=== PATIENT | female | born 1995 | race Caucasian/White ===

== ENCOUNTER 2016-10-03 12:18 | Emergency (ER) ==
[2016-10-03 12:36] VITALS: BP 135/89
[2016-10-03 13:11] LABS: URINE SOURCE CLEAN CATCH
[2016-10-03 13:14] LABS: URINE MICROSCOPIC NEEDED? YES
[2016-10-03 13:15] LABS: BILIRUBIN URINE 2+ (NEGATIVE); CLARITY SLIGHTLY CLOUDY (CLEAR); COLOR ORANGE; GLUCOSE URINE NEGATIVE (NEGATIVE); SP GRAVITY URINE 1.015
[2016-10-03 13:16] LABS: BLOOD URINE 4+ (NEGATIVE); LEUKOCYTES URINE 1+ (NEGATIVE); NITRITE URINE NEGATIVE (NEGATIVE); PROTEIN URINE 2+(100 mg/dL) mg/dL (NEGATIVE); UROBILINOGEN URINE 3+(8 mg/dL)
[2016-10-03 13:22] LABS: URINE CAST GRANULAR PRESENT /LPF; URINE EPITHELIAL CELLS >10 /HPF (<10); URINE RBC TNTC /HPF (<10); URINE WBC 20-40 /HPF (<10)
--- NOTE | 2016-10-03 14:01 | PROVIDER DOCUMENTATION ---
HPI-Abdominal Pain/GI Problem - General Chief Complaint: Constipation Stated Complaint: NAUSEA/VOMTING Time Seen by Provider: 10/03/16 14:34 Source: patient Allergies/Adverse Reactions: Patient Allergies Allergy/AdvReac Type Severity Reaction Status Date / Time Penicillins Allergy Intermediate HIVES Verified 12/17/14 13:11 Home Medications: Home Medication List Medication Instructions Recorded Confirmed Last Taken Type No Home Medications 10/03/16 10/03/16 Unknown History - History of Present Illness-ABD Nature of Presenting Problems: 21 yo F presents to the ER with complaint of n/v and constipation x2 weeks. Also describes mild abdominal cramping. Last full menstrual period was in June, describes bleeing for 1 day in July and 2 days in August. Onset/Duration: reports: other (2 weeks) Timing: reports: still present Associated Symptoms: reports: constipation, nausea, vomiting. denies: diarrhea Review of Systems - Adult - REVIEW OF SYSTEMS - ADULT Constitutional: denies: chills, fever Eyes: reports: no symptoms reported Ears, Nose, Mouth & Throat: reports: no symptoms reported Cardiovascular: reports: no symptoms reported Respiratory: denies: cough, shortness of breath Gastrointestinal: reports: abdominal pain (cramp), constipation, nausea, vomiting. denies: diarrhea Genitourinary: denies: dysuria, hematuria Musculoskeletal: reports: no symptoms reported Integumentary: reports: no symptoms reported Neurological: reports: no symptoms reported Psychiatric: reports: no symptoms reported Endocrine: reports: no symptoms reported Hematologic/Lymphatic: reports: no symptoms reported Allergic/Immunologic: reports: no symptoms reported All Other Systems: Reviewed and Negative Past History - Adult - PAST MEDICAL HISTORY-ADULT Review of Records: reports: Nursing Assessment Review, Medications Reviewed Major Childhood Illnesses: reports: denies history Cardiovascular: reports: denies history Respiratory: reports: denies history Gastrointestinal: reports: denies history Obstetrical/Gynecological: reports: denies history Genitourinary: reports: denies history Musculoskeletal: reports: denies history Neurological: reports: denies history Endocrine/Immune: reports: denies history Other Conditions: reports: denies history - PRIOR SURGERIES/PROCEDURES Surgical/Procedure History: reports: none, other (dental surgery) - IMMUNIZATION STATUS Childhood Immunizations: See Nurse Assessment Flu Vaccine: See Nurse Assessment - FAMILY HISTORY Family History: reviewed, not pertinent Physical Exam-General - PHYSICAL EXAM-ADULT Initial Vital Signs Reviewed: Yes - CONSTITUTIONAL General Appearance: alert, no apparent distress - EYES Eyes: PERRL/EOMI, pink conjunctivae - HEAD, EARS, NOSE, MOUTH & THROAT HENMT: normocephalic/atraumatic, normal ENT inspection - NECK Neck: supple, normal inspection - RESPIRATORY Respiratory: no respiratory distress, no accessory muscle use - CARDIOVASCULAR Cardiovascular: normal peripheral pulses, regular rate, rhythm - GASTROINTESTINAL (ABDOMEN) Abdominal Exam: normal bowel sounds, non tender, soft - MUSCULOSKELETAL Back Exam: no CVA tenderness, no vertebral tenderness Extremity: normal gait, normal inspection - SKIN Integumentary: normal color, warm/dry - NEUROLOGIC Neurologic: grossly normal, no motor/sensory deficits - PSYCHIATRIC Psych/Mental Status: normal mood/affect, normal thought content, normal thought process, oriented x 3 Progress - PLAN OF CARE/RESULTS Progress/Plan/Lab Results: Vital Signs Temp Pulse Resp BP Pulse Ox 10/03/16 12:31 98 F 138 H 19 135/89 98 Penicillins Allergy (Intermediate, Verified 12/17/14 13:11) HIVES No Home Medications 10/03/16 Laboratory 10/03/16 10/03/16 13:52 12:30 Urine Source CLEAN CATCH Urine Color ORANGE Urine Clarity SLIGHTLY CLOUDY A Urine pH 6.0 Ur Specific [place] 1.015 Urine Protein 2+(100 mg/dL) A Urine Ketones 3+(Large) A Urine Blood 4+ Urine Nitrite NEGATIVE Urine Bilirubin 2+ A Urine Urobilinogen 3+(8 mg/dL) Urine Microscopic RBC TNTC A Urine WBC 1+ A Urine Microscopic WBC 20-40 A Ur Epithelial Cells >10 A Urine Bacteria 3+ Urine Casts GRANULAR PRESENT Urine Glucose NEGATIVE Urine Test POSITIVE Orders Category Date Time Status US OBS COMPLETE < 14 WKS [US] Stat Exams 10/03/16 14:46 Taken TEST-URINE [PREG] Stat Lab 10/03/16 13:[address] [URINALYSIS] Stat Lab 10/03/16 12:30 Completed URINE MICROSCOPIC [URINALYSIS] Stat Lab 10/03/16 12:30 Completed - ULTRASOUND (By Radiology) 1 US Study: other (OB) Impression: Normal (viable IUP at 13w4d, per radiologist) Departure - Departure Time of Disposition Order: 16:22 DIAGNOSIS: Qualifiers: Weeks of gestation: 13 weeks Qualified Code(s): Z3A.13 - 13 weeks gestation of Disposition: HOME 01 Certified Medical Emergency: Emergent Condition: Stable Additional Instructions: ED Follow Up Instructions: You have been treated by a care provider in the Emergency Department. These instructions are being provided to you so you can have an understanding of how to care for yourself upon discharge. Upon discharge from the Emergency Department, you are responsible for making arrangements for follow-up care by a physician of your choice. Take all prescribed medications as directed. Return to the Emergency Department immediately for any new or worsening symptoms. You may call the Physician Referral phone number at [phone] to obtain a list of Physicians who are taking new patients. Referrals: None,PCP [Primary Care Provider] - Joel Macias MD [STAFF PHYSICIAN] - Attestation - Scribe Verification/Attestation Scribe:: Izabella Ricks Acting as Scribe for:: Ruiz Lebron Scribe documention review:: This chart was documented by a scribe and accurately reflects the service the provider performed and the decisions made by the provider.
--- NOTE | 2016-10-03 16:51 | Diag Imaging Result Document ---
PROCEDURE NAME: US OBS COMPLETE < 14 WKS - 10/03/2016 OB ULTRASOUND: FINDINGS: There is an intrauterine gestation with a heart rate of 171 beats per minute. The fetus is in breech presentation. The placenta is posterior. There is no evidence of placenta previa. The cervix is closed. There is no evidence of free intrapelvic fluid or adnexal masses. No measurements beyond the crown-rump length are submitted. By crown-rump length, the estimated gestational age is 13 weeks 4 days. There are no previous studies for this . IMPRESSION: Viable intrauterine gestation as described.
== END 2016-10-03 16:36 | disposition home or self-care (01) ==
LOC: P.ED 12:18
DX: O21.0 Mild hyperemesis gravidarum (principal); Z3A.13 13 weeks gestation of pregnancy; O26.891 Other specified pregnancy related conditions, first trimester; R10.9 Unspecified abdominal pain; K59.00 Constipation, unspecified
CPT/HCPCS: 76801; 81001; 81025